=== PATIENT | female | born 1995 | race Caucasian/White ===

== ENCOUNTER 2017-06-08 21:04 | Emergency (ER) | payer OTHER ==
[2017-06-08 21:11] VITALS: BP 132/72; PULSE 80; TEMP 98.1; BMI 32.1
--- NOTE | 2017-06-08 21:13 | PDOC ---
Rapid Medical Evaluation Time Seen by Provider: 06/08/17 21:09 Medical Evaluation: Allergies Allergy/AdvReac Type Severity Reaction Status Date / Time shellfish derived Allergy Verified 05/13/16 21:25 06/08/17 21:09 I have performed a brief in person evaluation of this patient. The patient presents with chief complaint of : dizzyness and seeing black and white spots , shaking . PMHX asthma, pre diabetic , anemic Pertinent PE findings: stable vitals, anxious I have ordered the following: labs, urine The patient will proceed to the ER for further evaluation. Discharge Disposition - Referrals Referrals: Margo Flowers MD [Primary Care Provider] - - Patient Instructions - Post Discharge Activity
[2017-06-08 21:30] LABS: BASOPHIL 0.5 % (0-2.0); MCHC 33.3 g/dl (32.0-36.0); MEAN CELL VOLUME 78.1 fl (80-96); MEAN PLT VOLUME 8.1 fl (7.5-11.1); NEUTROPHILS 46.1 % (42.8-82.8); PLATELET COUNT 293 K/MM3 (134-434); RDW 13.5 % (11.6-15.6); WHITE BLOOD COUNT 9.8 K/mm3 (4.0-10.0)
[2017-06-08 22:05] LABS: ALBUMIN 3.9 g/dl (3.4-5.0); ANION GAP 8 (8-16); BILIRUBIN,TOTAL 0.2 mg/dL (0.2-1.0); CO2 27 mmol/L (21-32); GLUCOSE,RANDOM 73 mg/dL (74-106); SGOT/AST 11 U/L (15-37); SGPT/ALT 21 U/L (12-78); TOT PROT 7.7 g/dl (6.4-8.2)
[2017-06-08 22:06] LABS: ALK PHOS 102 U/L (45-117)
--- NOTE | 2017-06-08 23:21 | PDOC ---
History of Present Illness - General History Source: Patient Exam Limitations: No Limitations - History of Present Illness Initial Comments: 06/09/17 00:06 The patient is a 21 year old female, with a significant past medical history of Anemia, Asthma, Diabetes who presents to the emergency department with dizziness and seeing black and white spots. Patient is accompanied by mother, who reports the patient has been having sudden episodes of dizziness and lightheadedness. During these episodes, patient sees black and white spots and suddenly becomes diaphoretic, nauseas, and generally weak. Patient denies any previous episodes in the past and presents to the ED for further evaluation. Patient denies chest pain, headache or dizziness. Patient denies fever, chills, abdominal pain, nausea, vomit, diarrhea or constipation. Patient denies dysuria , frequency, urgency or hematuria. Patient denies sick contacts or recent travel. Allergies: Past surgical history: R oofrectomy and ovarian cyst Social history: Never smoker PCP: Dr. Margo Flowers <Tamia Montana - Last Filed: 06/09/17 00:06> <Yajaira Butts - Last Filed: 06/09/17 00:32> - General Chief Complaint: Lightheaded Stated Complaint: DIZZINESS Time Seen by Provider: 06/08/17 21:09 Past History <Tamia Montana - Last Filed: 06/09/17 00:06> - Past Medical History Anemia: Yes Asthma: Yes COPD: No Diabetes: Yes - Immunization History Immunization Up to Date: Yes - Suicide/Smoking/Psychosocial Hx Smoking History: Never smoked Have you smoked in the past 12 months: No Hx Alcohol Use: No <Yajaira Butts - Last Filed: 06/09/17 00:32> - Past Medical History Allergies/Adverse Reactions: Allergies Allergy/AdvReac Type Severity Reaction Status Date / Time shellfish derived Allergy Verified 06/08/17 21:09 Home Medications: Ambulatory Orders Albuterol Sulfate Inhaler - [Ventolin HFA Inhaler -] 1 inh PO ASDIR 06/09/14 Review of Systems - Review of Systems Able to Perform ROS?: Yes Comments:: 06/09/17 00:07 CONSTITUTIONAL: Absent: fever, chills, diaphoresis, generalized weakness, malaise, loss of appetite HEENT: Absent: rhinorrhea, nasal congestion, throat pain, throat swelling, difficulty swallowing, mouth swelling, ear pain, eye pain, visual Changes CARDIOVASCULAR: Absent: chest pain, syncope, palpitations, irregular heart rate, lightheadedness , peripheral edema RESPIRATORY: Absent: cough, shortness of breath, dyspnea with exertion, orthopnea, wheezing, stridor, hemoptysis GASTROINTESTINAL: Absent: abdominal pain, abdominal distension, nausea, vomiting, diarrhea, constipation, melena, hematochezia GENITOURINARY: Absent: dysuria, frequency, urgency, hesitancy, hematuria, flank pain, genital pain MUSCULOSKELETAL: Absent: myalgia, arthralgia, joint swelling SKIN: Absent: rash, itching, pallor HEMATOLOGIC/IMMUNOLOGIC: Absent: easy bleeding, easy bruising, lymphadenopathy, frequent infections ENDOCRINE: Absent: unexplained weight gain, unexplained weight loss, heat intolerance, cold intolerance NEUROLOGIC: Absent: headache, focal weakness or paresthesias, dizziness, unsteady gait, seizure, mental status changes, bladder or bowel incontinence PSYCHIATRIC: Absent: anxiety, depression, suicidal or homicidal ideation, hallucinations. <Tamia Montana - Last Filed: 06/09/17 00:06> *Physical Exam - Vital Signs Last Vital Signs Temp Pulse Resp BP Pulse Ox 98.1 F 80 18 132/72 99 06/08/17 21:09 06/08/17 21:09 06/08/17 21:09 06/08/17 21:09 06/08/17 21:09 - Physical Exam Comments: 06/09/17 00:07 GENERAL: Well developed, well nourished. Awake and alert. No acute distress. HEENT: Normocephalic, atraumatic. PERRLA, EOMI. No conjunctival pallor. Sclera are non- icteric. Moist mucous membranes. Oropharynx is clear. NECK: Supple. Full ROM. No JVD. Carotid pulses 2+ and symmetric, without bruits. No thyromegaly. No lymphadenopathy. CARDIOVASCULAR: Regular rate and rhythm. No murmurs, rubs, or gallops. Distal pulses are 2+ and symmetric. PULMONARY: No evidence of respiratory distress. Lungs clear to auscultation bilaterally. No wheezing, rales or rhonchi. ABDOMINAL: Soft. Non-tender. Non-distended. No rebound or guarding. No organomegaly. Normoactive bowel sounds. MUSCULOSKELETAL Normal range of motion at all joints. No bony deformities or tenderness. No CVA tenderness. EXTREMITIES: No cyanosis. No clubbing. No edema. No calf tenderness. SKIN: Warm and dry. Normal capillary refill. No rashes. No jaundice. NEUROLOGICAL: Alert, awake, appropriate. Cranial nerves 2-12 intact. No deficits to light touch and temperature in face, upper extremities and lower extremities. No motor deficits in the in face, upper extremities and lower extremities. Normoreflexic in the upper and lower extremities. Normal speech. Toes are down-going bilaterally. Gait is normal without ataxia. PSYCHIATRIC: Cooperative. Good eye contact. Appropriate mood and affect. <Tamia Montana - Last Filed: 06/09/17 00:06> - Vital Signs Last Vital Signs Temp Pulse Resp BP Pulse Ox 98.1 F 80 18 132/72 99 06/08/17 21:09 06/08/17 21:09 06/08/17 21:09 06/08/17 21:09 06/08/17 21:09 <Yajaira Butts - Last Filed: 06/09/17 00:32> ED Treatment Course - LABORATORY CBC & Chemistry Diagram: 06/08/17 21:15 06/08/17 21:15 - ADDITIONAL ORDERS Additional order review: Laboratory Results 06/08/17 06/08/17 21:20 21:15 Sodium 138 Potassium 3.9 Chloride 103 Carbon Dioxide 27 Anion Gap 8 BUN 18 Creatinine 1.0 Creat Clearance w eGFR > 60 Random Glucose 73 L Calcium 9.0 Total Bilirubin 0.2 D AST 11 L ALT 21 Alkaline Phosphatase 102 Total Protein 7.7 Albumin 3.9 Urine HCG, Qual Negative 06/08/17 21:15 RBC 3.90 MCV 78.1 L MCHC 33.3 RDW 13.5 MPV 8.1 Neutrophils % 46.1 Lymphocytes % 40.0 Monocytes % 8.4 Eosinophils % 5.0 H Basophils % 0.5 <Tamia Montana - Last Filed: 06/09/17 00:06> - LABORATORY CBC & Chemistry Diagram: 06/08/17 21:15 06/08/17 21:15 - ADDITIONAL ORDERS Additional order review: Laboratory Results 06/08/17 06/08/17 21:20 21:15 Sodium 138 Potassium 3.9 Chloride 103 Carbon Dioxide 27 Anion Gap 8 BUN 18 Creatinine 1.0 Creat Clearance w eGFR > 60 Random Glucose 73 L Calcium 9.0 Total Bilirubin 0.2 D AST 11 L ALT 21 Alkaline Phosphatase 102 Total Protein 7.7 Albumin 3.9 Urine HCG, Qual Negative 06/08/17 21:15 RBC 3.90 MCV 78.1 L MCHC 33.3 RDW 13.5 MPV 8.1 Neutrophils % 46.1 Lymphocytes % 40.0 Monocytes % 8.4 Eosinophils % 5.0 H Basophils % 0.5 <Yajaira Butts - Last Filed: 06/09/17 00:32> *DC/Admit/Observation/Transfer - Attestations Scribe Attestion: 06/09/17 00:07 Documentation prepared by Tamia Montana, acting as medical research scientist for Yajaira Butts MD <Tamia Montana - Last Filed: 06/09/17 00:06> <Yajaira Butts - Last Filed: 06/09/17 00:32> Diagnosis at time of Disposition: Lightheadedness - Discharge Dispostion Disposition: HOME Condition at time of disposition: Stable - Referrals Referrals: Margo Flowers MD [Primary Care Provider] - - Patient Instructions Printed Discharge Instructions: DI for Dizziness-Nonvertigo Additional Instructions: please followup with your regular physician - Post Discharge Activity
--- NOTE | 2017-06-10 07:49 | EKG ---
Test Reason : Blood Pressure : / mmHG Vent. Rate : 070 BPM Atrial Rate : 070 BPM P-R Int : 148 ms QRS Dur : 094 ms QT Int : 402 ms P-R-T Axes : 040 062 040 degrees QTc Int : 434 ms NORMAL SINUS RHYTHM NORMAL ECG NO PREVIOUS ECGS AVAILABLE Confirmed by Kelechi Schafer ([id number]) on 06/09/2017 2:41:27 PM Also confirmed by MD Gilmar, Kelechi ([id number]), city editor KELECHI TAYLOR ([id number]) on 06/10/2017 7:49:29 AM Referred By: Confirmed By:Kelechi Schafer MD
== END 2017-06-09 00:58 | disposition home or self-care (01) ==
LOC: JER 21:04
DX: R42 Dizziness and giddiness (principal); J45.909 Unspecified asthma, uncomplicated; D64.9 Anemia, unspecified
CPT/HCPCS: 36415; 80053; 84703; 85025; 93005; 93010; 99281-25; 99283-25